=== PATIENT | male | born 1975 | race Caucasian/White ===

== ENCOUNTER 2018-07-03 07:59 | Outpatient (CLI) | payer BC, SELFPAY ==
[2018-07-03 09:25] LABS: Anion Gap 7.9 mmol/L (3-11); BUN 18 mg/dL (7-18); CO2 28.1 mmol/L (21.0-32.0); CREATININE 1.35 mg/dL (0.70-1.30); Calcium 9.3 mg/dL (8.5-10.1); Chloride 106 mmol/L (98-107); Estimated GFR 57.41 (mL/min/1.73m2); Glucose 103 mg/dL (70-100); Potassium 4.5 mmol/L (3.5-5.1); Sodium 142 mmol/L (136-145); Uric Acid 4.9 mg/dL (3.5-7.2)
== END 2018-07-03 08:19 ==
PROVIDERS: PCP Emergency Medicine; Visit Provider Emergency Medicine
DX: M10.9 Gout, unspecified (principal)
CPT/HCPCS: 36415; 80048; 84550

== ENCOUNTER 2020-03-12 11:41 | Outpatient (CLI) | payer BC, SELFPAY ==
--- NOTE | 2020-03-12 15:30 | DI.RAD_ITS ---
EXAM: XR LUMBAR SPINE COMPLETE CLINICAL HISTORY: Trauma due to fall,T14.90XA,PAIN,M25.552. TECHNIQUE: 2D digital imaging was performed. COMPARISON: CR XR SACRUM COCCYX from 03/12/2020 FINDINGS: BONES: No fracture or destructive lesion. Vertebral bodies are unremarkable. Mild hypertrophy is iden tified. DISKS: There is fuex-qx-msvonkeh narrowing of the L5-S1 disc space. The remaining disc spaces are we ll maintained. There are small endplate osteophytes at multiple levels.. ALIGNMENT: Lumbar spinal alignment is within normal limits. SOFT TISSUE: Normal. IMPRESSION: Mild degenerative changes, greatest at L5-S1.. DATA REPOSITORY: RADIATION DOSE DELIVERED:
--- NOTE | 2020-03-12 15:30 | DI.RAD_ITS ---
EXAM: XR SACRUM COCCYX CLINICAL HISTORY: Trauma due to fall,PAIN,T14.90XA. TECHNIQUE: 2D digital imaging was performed. COMPARISON: CR XR LUMBAR SPINE COMPLETE from 03/12/2020 FINDINGS: The exam is somewhat limited by overlapping soft tissue. BONES: No acute fracture is present. No bony destructive lesion is seen. JOINTS: The SI joints and visualized portions of the hip joints are unremarkable.. There is narrow ing of the L5-S1 disc space. SOFT TISSUE: Normal. IMPRESSION: No gross evidence of an acute abnormality.. DATA REPOSITORY: RADIATION DOSE DELIVERED:
== END 2020-03-12 12:01 ==
PROVIDERS: PCP Emergency Medicine; Visit Provider Emergency Medicine
DX: M53.3 Sacrococcygeal disorders, not elsewhere classified (principal); M25.552 Pain in left hip; M51.37 Other intervertebral disc degeneration, lumbosacral region; W19.XXXA Unspecified fall, initial encounter
CPT/HCPCS: 72110; 72220

== ENCOUNTER 2020-12-12 12:19 | Outpatient (REF) | payer BC, SELFPAY ==
[2020-12-12 13:23] LABS: BUN 16 mg/dL (7-18); CREATININE 1.2 mg/dL (0.70-1.30); Calcium 9.2 mg/dL (8.5-10.1); Calculated LDL 126 mg/dL (<100); Chloride 103 mmol/L (98-107); Cholesterol 204 mg/dL (<200); Glucose 94 mg/dL (74-106); HDL Cholesterol 50 mg/dL (40-60); Potassium 4.7 mmol/L (3.5-5.1); Sodium 135 mmol/L (136-145); Triglyceride 143 mg/dL (<150)
[2020-12-12 13:38] LABS: Uric Acid 4.4 mg/dL (3.5-7.2)
== END 2020-12-12 12:20 | disposition home or self-care (01) ==
LOC: LBN 12:19
PROVIDERS: PCP Emergency Medicine; Visit Provider Emergency Medicine
DX: I10 Essential (primary) hypertension (principal); E78.5 Hyperlipidemia, unspecified; M10.9 Gout, unspecified
CPT/HCPCS: 80048; 80061; 84550

== ENCOUNTER 2021-12-08 10:15 | Outpatient (CLI) | payer BC, SELFPAY ==
--- NOTE | 2021-12-08 09:30 | DI.RAD_ITS ---
Exam(s) XR KNEE LT 3V AP,LAT,DOMINIQUE EXAM: XR KNEE LT 3V AP,LAT,DOMINIQUE CLINICAL HISTORY: left knee pain TECHNIQUE: COMPARISON: No exams were available for comparison FINDINGS: Three views were obtained. The cartilaginous joint spaces appear fairly well maintained. No gross j oint effusion seen on the lateral view. No bony abnormality seen. IMPRESSION: Negative examination of the knee. RADIATION DOSE DELIVERED: Total DLP
== END 2021-12-08 10:16 | disposition home or self-care (01) ==
LOC: DIORS 10:15
PROVIDERS: PCP Nurse Practitioner Family; Referring Provider Nurse Practitioner Family; Visit Provider Student in an Organized Health Care Education/Training Program
DX: M25.562 Pain in left knee (principal)
CPT/HCPCS: 73562

== ENCOUNTER 2021-12-09 00:28 | Outpatient (CLI) | payer BC, SELFPAY ==
--- NOTE | 2021-12-09 07:15 | DI.MRI_ITS ---
Exam(s) MR LOWER JOINT LT WO EXAM: MR LOWER JOINT LT WO CLINICAL HISTORY: Acute MMT,TRAUMATIC TEAR, PAIN,S83.207A. TECHNIQUE: Multiplanar multisequence MRI was performed. COMPARISON: CR XR KNEE LT 3V AP,LAT,DOMINIQUE from 12/08/2021 FINDINGS: BONES: There is no fracture or contusion pattern. JOINTS: Articular cartilage is unremarkable. A minimal joint effusion is present. TENDONS: Extensor mechanism: Unremarkable. Medial retinaculum: Unremarkable. Lateral retinaculum: Unremarkable. Popliteus: Unremarkable. MUSCLES: Unremarkable. MENISCI: The medial meniscus shows abnormal linear horizontal signal in the posterior horn and body w ith extension to the inferior articular surface.. There is a question of an additional tiny radial t ear. The lateral meniscus is unremarkable. SOFT TISSUES: Unremarkable. LIGAMENTS: Anterior Cruciate: Mild surrounding edema. No visible tear. Posterior Cruciate: Unremarkable. Medial Collateral:Unremarkable. Lateral Collateral: Unremarkable. OTHER: IMPRESSION: Inferior surfacing tear the posterior horn and body of the medial meniscus. Question of ACL sprain. DATA REPOSITORY:
== END 2021-12-09 00:48 ==
PROVIDERS: PCP Nurse Practitioner Family; Visit Provider Student in an Organized Health Care Education/Training Program
DX: M25.562 Pain in left knee (principal); M25.462 Effusion, left knee; S83.242A Other tear of medial meniscus, current injury, left knee, initial encounter; X58.XXXA Exposure to other specified factors, initial encounter; S83.512A Sprain of anterior cruciate ligament of left knee, initial encounter
CPT/HCPCS: 73721

== ENCOUNTER 2021-12-30 02:25 | Outpatient (CLI) | payer BC, SELFPAY ==
[2021-12-30 11:35] LABS: Source Nasal/Nares
[2021-12-30 14:04] LABS: COVID-19 PCR Negative (Negative)
== END 2021-12-30 02:26 | disposition home or self-care (01) ==
PROVIDERS: PCP Nurse Practitioner Family; Visit Provider Student in an Organized Health Care Education/Training Program
DX: Z20.822 Contact with and (suspected) exposure to COVID-19 (principal)
CPT/HCPCS: 87635

== ENCOUNTER 2022-01-01 10:54 | Day surgery (SDC) | payer BC, SELFPAY ==
[2022-01-01 11:13] VITALS: BP 120/85; PULSE 68; RESP 16; TEMP 36.7; O2SAT 97
[2022-01-01] MEDS: Lactated Ringers 1,000 ML 100 ML IV (11:45)
--- NOTE | 2022-01-01 12:27 | W.ANESPRE ---
General Info Date of Service Date Performed: 01/01/22 Height: 6 ft Weight: 95.1 kg Body Mass Index (BMI): 28.4 Surgical Procedure: Operation Date: 01/01/22 12:55 Proposed Procedure Side Surgeon p Knee Arthroscopy w/any indicated meniscal, chondral and synovial surgery Left Jose Antonio Baker MD Meds Allergies and Home Medications Allergies Allergy/AdvReac Type Severity Reaction Status Date / Time No Known Allergies Allergy Verified 01/01/22 11:11 Home Medication Medication Instructions Recorded glucosamine 750 lf-bvewky-huc 1 2 tab PO DAILY 01/23/19 625 mg-D3 1,000 cwex-Z-yoa-Bosw tablet (Zfldiiragta-Thpdddspwqz-NGL with vit D) fluticasone propionate 50 2 spray VALENTINO DAILY PRN #36.4 ml 12/06/19 mcg/actuation nasal spray,suspension (Flonase Allergy Relief) allopurinol 100 mg tablet 50 mg PO DAILY tab-cap 12/23/21 Current Visit Medications: Current Medications Generic Name Dose Route Start Last Admin Trade Name Freq PRN Reason Stop Dose Admin Ringer's Solution 1,000 mls @ 100 mls/hr 01/01/22 06:00 01/01/22 11:45 IV 01/14/22 23:59 100 mls/hr INFUSION ALTAGRACIA Administration Cefazolin Sodium/Dextrose 2 gm in 50 mls @ 100 mls/hr 01/01/22 06:00 Ancef Duplex IVPB 01/01/22 23:59 PREOP ALTAGRACIA IV Miscellaneous Supplies 1 each 01/01/22 06:00 Iv Access IV 01/14/22 23:59 DIRECTED ALTAGRACIA Naproxen 250 - 500 mg 01/01/22 07:25 Naproxen 500 Mg Tab PO BID PRN PRN Oxycodone HCl 5 - 10 mg 01/01/22 07:25 Oxycodone 5 Mg Tab PO Q4H PRN PRN Sodium Chloride 0 ml 01/01/22 06:00 Normal Saline Flush 10 Ml Syr IV 01/14/22 23:59 PRN PRN Sodium Chloride 0 ml 01/01/22 06:00 Normal Saline 10 Ml Vial IJ 01/14/22 23:59 DIRECTED PRN Sterile Water 0 ml 01/01/22 06:00 Water,Injection,Sterile 10 Ml Vial IJ 01/14/22 23:59 DIRECTED PRN PFSH Active Problems Active Problems: Problem Status Onset Code Anxiety F41.9 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 Hyperlipidemia E78.5 Gout 06/17/17 M10.9 Bilateral tinnitus H93.13 Pneumonia J18.9 Status post vasectomy 03/21/15 Z98.52 Status post inguinal hernia repair 03/21/15 Z98.890, Z87.19 Primary insomnia 06/30/16 F51.01 History of shoulder surgery Z98.890 Gastroesophageal reflux disease K21.9 Depressive disorder F32.9 Bicipital tenosynovitis M75.20 Anxiety F41.9 Low back pain M54.5 Hypertrophy of inferior nasal turbinate J34.3 Deviated nasal septum J34.2 Nasal obstruction J34.89 Double vision H53.2 Right calf pain M79.661 Traumatic tear of meniscus of left knee 09/24/21 S83.207A Medical History Medical History Hyperlipidemia Impingement syndrome, shoulder Surgical History Surgical History (Updated 01/01/22 @ 11:11 by Kathy Mitchell) EGD - MAC (07/11/17) Hx of nasal septoplasty PROCEDURE l shoulder rpr rot cuff, labrum, bone spurs ([place]).HE Repair of inguinal hernia (03/21/15) LEFT Vasectomy (03/21/15) Tobacco Smoking/Tobacco Use Status: Former Tobacco Use Passive smoking exposure: Yes Alcohol Alcohol Intake: current Alcohol intake frequency: a few times a week Substance Use Substance use: Never Substance use type: does not use Vital Signs and Lab Results Vital Signs Most Recent Vital Signs in EMR: Most Recent Vital Signs Temp Pulse Resp BP Pulse Ox 36.7 C 68 16 120/85 97 01/01/22 11:13 01/01/22 11:13 01/01/22 11:13 01/01/22 11:13 01/01/22 11:13 Lab Results Blood Type / Crossmatch: No Data to Display Complete Blood Count: No Data to Display Complete Metabolic Panel: No Data to Display Liver Function Panel: No Data to Display Coagulation Panel: No Data to Display Cardiac Panel: No Data to Display Arterial Blood Gas: No Data to Display Venous Blood Gas: No Data to Display Pancreas Panel: No Data to Display Thyroid Panel: No Data to Display Infectious Disease: Coronavirus (COVID-19)(PCR) Negative (Negative) 12/30/21 08:51 12/30/21 Coronavirus 2019 Source Nasal/Nares 12/30/21 08:51 12/30/21 Blood Cultures: No Data to Display Toxicology Panel: No Data to Display Anesthesia Assessment and Plan Anesthesia History Personal History: No History of Anesthesia Complications Family History: No Family History of Anesthesia Complications Exercise Tolerance Exercise Tolerance: Metabolic Equivalents>4 Pertinent Negatives Pertinent Negatives: No Symptoms of GERD, No Major Cardiovascular Symptoms or Complaints, No Major Pulmonary Symptoms or Complaints and No History of CVA/TIA Cardiac & Pulmonary Exam Cardiac Exam: Normal S1/S2 Heart Sounds Pulmonary Exam: Clear Bilateral Breath Sounds Implantable Cardiac Device Does patient have a Pacemaker or an ICD?: No Airway Exam Known Difficult Airway: No Mallampati Class: 2 Mouth Opening: Normal (> 3cm) Thyromental Distance: Greater than 3 cm Neck Range of Motion: Full ROM Neck Circumference: Normal Teeth Condition: Normal Dentition ASA Classification ASA Score: ASA 2 Emergency Case?: No NPO Status NPO Status: NPO Clears >2 hours, Solids >8 hours Anesthesia Plan Resuscitation Status: Full Code Anesthesia Technique: Spinal Anesthesia Airway Planned: Natural Airway Monitors Used: Standard Monitors
[2022-01-01 12:28] VITALS: BMI 28.4
[2022-01-01] MEDS: ceFAZolin 2 GM/50 ML BAG IVPB (12:54)
[2022-01-01] MEDS: MORPHine 4 MG/ML SYR (13:34)
[2022-01-01] MEDS: Bupivacaine 0.25% Pres-Free 30 ML VIAL (13:34)
[2022-01-01 14:03] VITALS: BP 119/69; PULSE 74; RESP 16; TEMP 36.1; O2SAT 98
--- NOTE | 2022-01-01 14:11 | PDOC.DSDIS_ITS ---
Discharge Plan Disposition Patient Disposition: HOME Condition: Stable Discharge Details Reason For Visit: Left knee surgery Attending Provider: Jose Antonio Baker Primary Care Provider: Bobby Razo Home Meds and New Rx's Prescriptions: New naproxen 250 mg tablet 250 - 500 mg PO BID PRNQty: 30 0RF Rx Instructions: take with a meal aspirin 81 mg tablet,delayed release (DR/EC) 81 mg PO DAILY 14 Days Qty: 14 0RF oxycodone 5 mg tablet 5 - 10 mg PO Q4H MDD 30 mg PRN (Reason: moderate to severe pain) Qty: 12 0RF Continued fluticasone propionate [Flonase Allergy Relief] 50 mcg/actuation spray,suspension 2 spray VALENTINO DAILY PRN (Reason: nasal congestion) Qty: 36.4 4RF Rx Instructions: administer 2 sprays into each nostril once a day allopurinol 100 mg tablet 50 mg PO DAILY 0RF Myqrdauv-Qlpjth-CLY with vit D 750-625-1,000 mg-mg-unit tablet 2 tab PO DAILY 0RF Label Comments: 01/23/19 prn. si Discharge Instructions Additional Instructions: Surgery: Left knee arthroscopy with partial medial meniscectomy Activity: Weightbearing as tolerated. Advance range of motion as comfort allows. Restore full knee extension soon as possible. No knee brace or crutches needed as soon as comfortable. Recommend avoiding sports, pivoting, and squatting for 6-8 weeks. Physical therapy should resume in 1-2 weeks. Prescriptions: Aspirin 81 mg take 1 daily to prevent a blood clot for 14 days Naproxen 250 mg take 1-2 every 12 hours with a meal as needed for moderate pain Oxycodone 5 mg take 1-2 every 4-6 hours as needed for severe pain You may use tebl-gvn-wxptfwx Tylenol (acetaminophen) as needed for mild pain. These pain medications may be taken all at once or in different combinations as needed. Also, recommend Colace (docusate) as a stool softener as surgery and pain medicine cause constipation. Dressings: Leave dressing in place for 3 days. May then remove and leave open to air or cover incisions with Band-Aids. May shower after 5 days. Follow-up: 10-[address] Baker Let us know right away if you develop any redness, drainage, fevers, chest pain, or trouble breathing. Do not drink alcohol or drive for at least 24 hours after anesthesia. Please call the office during business hours with any questions or concerns. Referrals: Jose Antonio Baker MD [ [facility] STAFF PHYSICIAN] - Discharge Orders Discharge Orders: Discharge Order (Routine); Ordered 01/01/22 Ordered By: Jose Antonio Baker DS: Diagnosis Discharge Diagnosis (1) Traumatic tear of meniscus of left knee: Status: Acute
--- NOTE | 2022-01-01 14:18 | W.PM.OP ---
Date of service: 01/01/22 Time of Service: 14:14 Operative Note Operative Note DATE OF PROCEDURE: 01/01/22 PRE-OP DIAGNOSIS: Left knee 1. Medial meniscus tear POST-OP DIAGNOSIS: same PROCEDURE: Left knee 1. Partial medial meniscectomy, CPT #18371 SURGEON: Jose Antonio Baker AIR INTELLIGENCE SPECIALIST: None None ANESTHESIA TYPE: Local By Surgeon and Spinal Refer to Anesthesia Record PATHOLOGY: none sent TOURNIQUET TIME: 0 COMPLICATIONS: None Patient was transported to: PACU Patient's condition: stable Indications: Please see complete medical record for details. Findings: Exam under anesthesia: Full range of motion, no instability Arthroscopic findings: Small radial medial meniscus tear mostly. Localized distal lateral medial femoral condyle chondromalacia with grade 2?3 changes. Mild patellofemoral and anterior medial anterolateral synovitis. Tiny white zone lateral meniscus tear. Procedure Description: In the operating room, genral anesthesia was induced. The patient was positioned supine on the operating room table. All bony prominences were well-padded. Preoperative antibiotics were administered. The knee was prepped and draped in the usual sterile fashion. The correct patient, procedure, and side of the procedure were all verified prior to incision. Exam under anesthesia was performed. 10 cc of lidocaine & bupivacaine containing epinephrine was infiltrated about the planned anteromedial and anterolateral knee arthroscopy portals. The portals were established and a complete diagnostic arthroscopy was performed with relevant findings detailed above. Using a combination of hand instruments including meniscal biters and a power shaver and working through the anteromedial and anterolateral compartments the medial meniscus was debrided of all torn tissue to a stable margin. Care was taken to preserve as much meniscus tissue was possible. The cartilage injury site was probed and a limited chondroplasty was performed of the medial femoral condyle only removing free unstable cartilage flaps. The medial meniscal remnant was probed and found to have a stable margin, stable root, and no other tears. The mechanical shaver was also used to remove a minor amount of lateral meniscus tear fraying. The mechanical shaver was then used to remove a mild amount of inflamed synovium from the anteromedial, anterolateral, and patellofemoral compartments. Under direct arthroscopic visualization an 18-gauge needle was passed into the knee from superolateral into the suprapatellar pouch. The knee was copiously irrigated with arthroscopic fluid until there was a clear effluent before being drained of all fluid. The anteromedial and anterolateral portals were closed in 3-0 Monocryl in a buried interrupted fashion. 20 cc of lidocaine and bupivacaine with epinephrine containing 4 mg of morphine was infiltrated into the knee through the previously placed needle. Mastisol, Steri-Strips, and 4 x 4 gauze were applied over the incisions followed by sterile soft roll. The knee was then wrapped gently with an JER comressive bandage. The patient awoke from anesthesia without complication and was transferred to the recovery room in a stable condition.
--- NOTE | 2022-01-01 14:22 | W.ANESPOSTOP ---
Postoperative Evaluation Date, Time and Location Date Performed: 01/01/22 Time Performed: :22 Patient Location: Day Surgery Unit Vital Signs Most Recent Imported Vital Signs: Most Recent Vital Signs Temp Pulse Resp BP Pulse Ox 36.7 C 68 16 120/85 97 01/01/22 11:13 01/01/22 11:13 01/01/22 11:13 01/01/22 11:13 01/01/22 11:13 Pain Score Most Recent Pain Score: Most Recent Pain Score Pain Level 0 01/01/22 11:13 Assessment Mental Status: Awake (Alert & Oriented to Patient Baseline) Airway and Respiratory Function: Patent airway with normal (patient baseline) respiratory exam Cardiovascular Function: Hemodynamically Stable Hydration Status: Adequately Hydrated Nausea & Vomiting: No Nausea or Vomiting Pain: Pt. Denies Any Pain Peripheral Nerve Block: Patient did not receive a nerve block
[2022-01-01 14:36] VITALS: BP 118/77; PULSE 61; RESP 16; TEMP 36.5; O2SAT 98
== END 2022-01-01 15:35 | disposition home or self-care (01) ==
LOC: SUR 10:55
PROVIDERS: PCP Nurse Practitioner Family; Visit Provider Student in an Organized Health Care Education/Training Program
PROC: (CPT 29870; principal; 2022-01-01 12:45)
DX: M23.232 Derangement of other medial meniscus due to old tear or injury, left knee (principal); M94.262 Chondromalacia, left knee; M65.862 Other synovitis and tenosynovitis, left lower leg
CPT/HCPCS: 29881; J0690; J1885; J2270

== ENCOUNTER 2022-08-09 02:53 | Outpatient (CLI) | payer BC, SELFPAY ==
[2022-08-09 15:30] LABS: Uric Acid 6.1 mg/dL (3.5-7.2)
== END 2022-08-09 02:54 | disposition home or self-care (01) ==
LOC: LBO 02:53
PROVIDERS: PCP Nurse Practitioner Family; Visit Provider Nurse Practitioner Family
DX: M10.9 Gout, unspecified (principal)
CPT/HCPCS: 36415; 84550

== ENCOUNTER 2023-04-25 08:27 | Day surgery (SDC) | payer BC, SELFPAY ==
--- NOTE | 2023-04-24 11:05 | W.PM.DSUDISC ---
Date of service: 04/25/23 Time of Service: 10:40 Discharge Plan Disposition Patient Disposition: Home Condition: Good Discharge Details Reason For Visit: Colonoscopy Attending Provider: Main Humphrey Primary Care Provider: Bobby Razo Home Meds and New Rx's Prescriptions: Continued methylphenidate HCl 10 mg capsule, ER biphasic 30-70 10 mg PO DAILY MDD 10mg Qty: 28 0RF Discontinued bisacodyl [Dulcolax (bisacodyl)] 5 mg tablet,delayed release (DR/EC) 5 mg PO ONCE Qty: 4 0RF Rx Instructions: Take per colonoscopy instructions provided by ordering providers office polyethylene glycol 3350 17 gram/dose powder 17 g PO ONCE Qty: 238 0RF Rx Instructions: Take per colonoscopy instructions provided by ordering providers office Discharge Instructions Additional Instructions: Jose Antonio, you did great today. The quality of your prep was outstanding. We had great visualization of all parts of the large intestine. Your screening colonoscopy was totally normal. You should consider another one in 10 years to minimize the chances of dying from colon cancer over the course your lifetime. If you have any questions at all, please do not hesitate to call. All the best and see you soon. 1. If tolerated, consume a soft, low fiber diet for 1-2 days. 2[address] Do not drive, drink alcohol, operate machinery, make critical decisions, or do activities that require coordination or balance for 24 hours. 3. Because air was put into your colon during the procedure, expelling air from your rectum (passing gas or farting) is normal. 4. You may not have a bowel movement for 1-3 days because of the colonoscopy prep. This is normal. 5. Go directly to the emergency room if you notice any of the following: Develop chills (warm to touch), or if you have a thermometer and your temperature is above 101 Difficulty breathing or difficultly swallowing Persistent vomiting Severe abdominal pain, other than gas cramps Severe chest pain Black, tarry stools Any bleeding ? exceeding one tablespoon 6. Call your physician if the site where your intravenous was started becomes red, swollen, painful, and warm to touch. 7. Your physician has reviewed your pre-procedure medications. Please continue to take those medications as previously ordered. You will be given specific information/education regarding any changes to your medications before leaving. Activity:: Activity as Tolerated Diet:: As Tolerated Discharge Orders Discharge Orders: Discharge Order (Routine); Ordered 04/24/23 Ordered By: Main Humphrey DS: Diagnosis Discharge Diagnosis (1) Screen for colon cancer: Status: Acute Asessment and Plan: Negative screening colonoscopy
--- NOTE | 2023-04-24 11:06 | W.COLOREPORT ---
Date of service: 04/25/23 Time of Service: 10:41 Colonoscopy Report Date of procedure: 04/25/23 Pre-op diagnosis general: Screening colonoscopy Post-op diagnosis procedure note: other (Negative screening colonoscopy) Procedure: Colonoscopy Surgeon: Main Humphrey Anesthesia Type: General:No Airway Estimated blood loss (mL): 0 Pathology: none sent Complications: None Disposition: same day Indications: Jose Antonio is 47 years old, and is here for screening colonoscopy Prep: Miralax/Dulcolax Procedure Start Time: 10:16 Procedure End Time: 10:24 Retraction Time: 5 Findings: Normal screening colonoscopy Procedure Description: After the induction of monitored anesthetic care, and with the patient in left lateral decubitus position, I began by performing an external anorectal exam.? Perineum and skin were normal, as was the anal verge.? There was no evidence of external hemorrhoids.? Next, I performed a digital rectal exam.? I did not appreciate any abnormal findings.? Next, I advanced a colonoscope into the rectal vault.? I performed retroflexion.? This was normal.? Using insufflation, I then advanced the colonoscope beyond the rectal folds and into the sigmoid colon before advancing towards the cecum.? The quality of the prep was outstanding.? The scope was noted to be in the cecum by identification of the ileocecal valve and appendiceal orifice.? I then began withdrawing the colonoscope using repeated irrigation as necessary for full evaluation of the colonic mucosa. ?Once the scope was withdrawn to the level of the rectum, great care was taken to examine portions of the rectal folds.? I did not see any signs of tumors or polyps anywhere along the length of the colon. Finally, the scope was withdrawn and the patient was brought to the same-day surgery recovery unit as the anesthetic wore off. ?The findings and instructions were shared with the patient prior to discharge.
[2023-04-25 08:35] VITALS: BP 121/91; PULSE 68; RESP 16; TEMP 36.5; O2SAT 97
--- NOTE | 2023-04-25 09:01 | W.ANESPRE ---
General Info Date of Service Date Performed: 04/25/23 Height: 6 ft 0.5 in Weight: 95.2 kg Body Mass Index (BMI): 28.0 Surgical Procedure: Operation Date: 04/25/23 09:50 Proposed Procedure Side Surgeon ritu Humphrey MD Meds Allergies and Home Medications Allergies Allergy/AdvReac Type Severity Reaction Status Date / Time No Known Allergies Allergy Verified 04/25/23 08:43 Home Medication Medication Instructions Recorded methylphenidate HCl 10 mg biphasic 10 mg PO DAILY #28 caps 03/21/23 30-70 capsule,extended release Current Visit Medications: Current Medications Generic Name Dose Route Start Last Admin Trade Name Freq PRN Reason Stop Dose Admin Hyoscyamine Sulfate 0.125 mg 04/24/23 11:07 Hyoscyamine 0.125 Mg Sl/Oral/Chew SL 05/24/23 11:06 DIRECTED PRN Ringer's Solution 1,000 mls @ 80 mls/hr 04/25/23 06:00 IV 05/22/23 23:59 INFUSION [facility] IV Miscellaneous Supplies 1 each 04/25/23 06:00 Iv Access IV 05/22/23 23:59 DIRECTED ALTAGRACIA Ondansetron HCl 4 mg 04/24/23 11:07 Ondansetron 4 Mg/2 Ml Vial IVP 05/24/23 11:06 Q4H PRN PRN Nausea / Vomiting Sodium Chloride 0 ml 04/25/23 06:00 Normal Saline Flush 10 Ml Syr IV 05/22/23 23:59 PRN PRN Sodium Chloride 0 ml 04/25/23 06:00 Normal Saline 10 Ml Vial IJ 05/22/23 23:59 DIRECTED PRN Sterile Water 0 ml 04/25/23 06:00 Water,Injection,Sterile 10 Ml Vial IJ 05/22/23 23:59 DIRECTED PRN PFSH Active Problems Active Problems: Problem Status Onset Code Hyperlipidemia E78.5 Gout 06/17/17 M10.9 Bilateral tinnitus H93.13 Primary insomnia 06/30/16 F51.01 Double vision H53.2 ADD (attention deficit disorder) F98.8 Screen for colon cancer Z12.11 Medical History Medical History Deviated nasal septum ENT surgically repaired Impingement syndrome, shoulder Traumatic tear of meniscus of left knee (09/24/21) Surgically repaired Surgical History Surgical History (Updated 04/25/23 @ 08:46 by Fallon Mac RN) EGD - MAC (07/11/17) H/O medial meniscus repair of left knee H/O shoulder surgery Right, Dr. Scott Hx of nasal septoplasty PROCEDURE l shoulder rpr rot cuff, labrum, bone spurs ([facility]).HE Repair of inguinal hernia (03/21/15) LEFT Status post inguinal hernia repair (03/21/15) Status post vasectomy (03/21/15) Vasectomy (03/21/15) Tobacco Smoking/Tobacco Use Status: Former Tobacco Use Passive smoking exposure: Yes Alcohol Alcohol Intake: current Alcohol intake frequency: a few times a week Substance Use Substance use: Never Substance use type: does not use Vital Signs and Lab Results Vital Signs Most Recent Vital Signs in EMR: Most Recent Vital Signs Temp Pulse Resp BP Pulse Ox 36.5 C 68 16 121/91 H 97 04/25/23 08:35 04/25/23 08:35 04/25/23 08:35 04/25/23 08:35 04/25/23 08:35 Lab Results Blood Type / Crossmatch: No Data to Display Complete Blood Count: No Data to Display Complete Metabolic Panel: No Data to Display Liver Function Panel: No Data to Display Coagulation Panel: No Data to Display Cardiac Panel: No Data to Display Arterial Blood Gas: No Data to Display Venous Blood Gas: No Data to Display Pancreas Panel: No Data to Display Thyroid Panel: No Data to Display Infectious Disease: No Data to Display Blood Cultures: No Data to Display Toxicology Panel: No Data to Display Imaging and Studies Imaging and Studies Study information below may be from another EMR and interpreted by another provider. Please see original notes in EMR for more complete details. Stress Test Summary: Stress Test Jose Antonio Fischer 47 M 1975 Allergy/Adv: No Known Allergies Patient Name: JOSE ANTONIO FISCHER #: [id number]: DI Ordering Provider: Neyda Vernon NPAccount #: [id number]: REG CLI Primary Care Provider: KENYON TSAIate of Exam: 06/22/16ex: M : 1975Age: 40 Exam(s) [id number] NM:MPI Resting & Stress GRP *[facility]* *[facility]* [address] [place] [address] Myocardial Perfusion Imaging - SPECT Marcos protocol Date of study: 06/22/2016 *PATIENT PRESENTATION* Height: 182.9cm ((72in) ) Blood Pressure: Weight: 88.6kg ((195lb) ) BSA: 2.13m^2 Ordering physician: Randolph Dixon MD Impressions: Normal perfusion by Tc99m Sestamibi Imaging. Summary: 1. Myocardial perfusion imaging: No myocardial perfusion defects noted. 2. The calculated left ventricular ejection fraction after stress: 61%. Indication: R07.9. History: REASON FOR TEST: PATIENT REPORTS THAT A MONTH AGO HE AWOKE FROM SLEEP WITH CHEST TIGHTNESS AND BILATERAL ARM NUMBNESS. SINCE THAT EVENT PT REPORTS INTERMINTENT PINCH RATED 3/10 LEFT STERNAL BOARDER. PAST MEDICAL HX: HYPERLIPIDEMIA, GERD, ANIEXTY. FAMILY HX: FATHER- HYPERTENSION & HYPERLIPIDEMIA. MOTHER- HYPERLIPIDEMIA. SMOKING STATUS: FORMER SMOKER EXERCISE ROUTINE: 3-5 DAYS/ WEEK RUN 30 MINUTES OR MORE. Risk factors: Family history of coronary artery disease. Dyslipidemia. Cholesterol: 195mg/dl. HDL: 53mg/dl. LDL: 128mg/dl. Triglycerides: 128mg/dl. ALLERGIES: SHRIMP MEDICATIONS: IBUPROFEN 800MG PRN, GLUCOSAMINE 1 TAB DAILY. Imaging Technique: Protocol: Marcos protocol. Acquisition: Gated SPECT; 1 day - rest/stress. The patient was imaged in the supine position. Attenuation correction used. Isotope administration: - Rest. Tc[99m]-sestamibi. Dose: 10.1mCi. Injection time: 08:30 AM. Injection to stress time: 00:45. - Stress. Tc[99m]-sestamibi. Dose: 30mCi. Injection time: 10:05 AM. 1-2 min before end of exercise Baseline ECG: SINUS RHYTHM. HR 60 BPM. NO ECTOPY. EKG FROM 05/21/16 SHOWS SINUS RHYTHM WITH LOW VOLTAGE AT 73 BPM. Stress protocol: + +---+ + !Stage !HR !BP (mmHg) ! + +---+ + !Baseline supine !60 !120/70 (87) ! + +---+ + !Baseline standing !63 !120/80 (93) ! + +---+ + !Stage I; 1.7mph, 10degrees; 3 min !96 !130/70 (90) ! + +---+ + !Stage II; 2.5mph, 12degrees; 3 min !115!160/80 (107)! + +---+ + !Stage III; 3.4mph, 14degrees; 3 min!152!180/80 (113)! + +---+ + !Stage IV; 4.2mph, 16degrees; 3 min !174! ! + +---+ + !Peak stress !185! ! + +---+ + !Immediate post stress !182! ! + +---+ + !Recovery; 1 min !148!100/62 (75) ! + +---+ + !Recovery; 3 min !121!150/80 (103)! + +---+ + !Recovery; 6 min !112!120/60 (80) ! + +---+ + !Recovery; 9 min !106! ! + +---+ + * Stress results: The rate-pressure product for the peak heart rate and blood pressure was 83348ri Hg/min. Stress ECG: TREADMILL PORTION OF STRESS TEST ENDED IN 15 MINUTES AND 3 SECONDS DUE TO PATIENT FATIGUE. MAX HEART RATE: 185 PERCENT OF TARGET: 103% SUDDEN DECREASE IN BLOOD PRESSURE 100/62 IN IMMEDIATE RECOVERY WITH C/O DIZZINESS. NO ECTOPY NOTED. PT REPORTED DURING IMMEDIATE RECOVERY A CHEST POKE LEFT STERNAL BOARDER. THIS RESOLVED IN 12 MINUTES OF RECOVERY. UPWARD SLOPING ST DEPRESSIONS NOTED AT IMMEDIATE RECOVERY IN LEADS V4,V5, AND V6. THESE RESOLVED IN 2 MINUTES OF RECOVERY. FUNCTIONAL CAPACITY: ABOVE AVERAGE. Myocardial perfusion: Imaging information: gated. No myocardial perfusion defects noted. Ventricular Function (Wall Motion): The calculated left ventricular ejection fraction after stress: 61%. 06/22/16 Echocardiogram Summary: Summary: 1. Left ventricle: The cavity size was normal. Wall thickness was normal. Systolic function was normal. The estimated ejection fraction was 55-60%. Wall motion was normal; there were no regional wall motion abnormalities. 2. Aortic root: The aortic root was at upper normal limits. 3. Right ventricle: The cavity size was at the upper limits of normal. Wall thickness was normal. Systolic function was normal. 05/28/16 Anesthesia Assessment and Plan Anesthesia History Personal History: No History of Anesthesia Complications Family History: No Family History of Anesthesia Complications Exercise Tolerance Exercise Tolerance: Metabolic Equivalents>4 Pertinent Negatives Pertinent Negatives: No Symptoms of GERD, No Major Cardiovascular Symptoms or Complaints, No Major Pulmonary Symptoms or Complaints and No History of CVA/TIA Cardiac & Pulmonary Exam Cardiac Exam: Normal S1/S2 Heart Sounds Pulmonary Exam: Clear Bilateral Breath Sounds Implantable Cardiac Device Does patient have a Pacemaker or an ICD?: No Airway Exam Known Difficult Airway: No Mallampati Class: 2 Mouth Opening: Normal (> 3cm) Thyromental Distance: Greater than 3 cm Neck Range of Motion: Full ROM Neck Circumference: Normal Teeth Condition: Normal Dentition ASA Classification ASA Score: ASA 2 Emergency Case?: No NPO Status NPO Status: NPO Clears >2 hours, Solids >8 hours Anesthesia Plan Resuscitation Status: Full Code Anesthesia Technique: General Anesthesia Airway Planned: Natural Airway Monitors Used: Standard Monitors
[2023-04-25] MEDS: Lactated Ringers 1,000 ML 80 ML IV (09:05)
[2023-04-25 10:01] VITALS: BMI 28.0
[2023-04-25 10:30] VITALS: BP 114/94; PULSE 68; RESP 17; TEMP 36.5; O2SAT 97
[2023-04-25 11:00] VITALS: BP 124/88; PULSE 59; RESP 17; TEMP 36.6; O2SAT 98
--- NOTE | 2023-04-25 11:01 | W.ANESPOSTOP ---
Postoperative Evaluation Date, Time and Location Date Performed: 04/25/23 Time Performed: 10:35 Patient Location: Day Surgery Unit Vital Signs Most Recent Imported Vital Signs: Most Recent Vital Signs Temp Pulse Resp BP Pulse Ox 36.5 C 68 17 114/94 H 97 04/25/23 10:30 04/25/23 10:30 04/25/23 10:30 04/25/23 10:30 04/25/23 10:30 Pain Score Most Recent Pain Score: Most Recent Pain Score Pain Level 0 04/25/23 10:30 Assessment Mental Status: Awake (Alert & Oriented to Patient Baseline) Airway and Respiratory Function: Patent airway with normal (patient baseline) respiratory exam Cardiovascular Function: Hemodynamically Stable Hydration Status: Adequately Hydrated Nausea & Vomiting: No Nausea or Vomiting Pain: Pt. Denies Any Pain Peripheral Nerve Block: Patient did not receive a nerve block
== END 2023-04-25 11:16 | disposition home or self-care (01) ==
PROVIDERS: PCP Nurse Practitioner Family; Visit Provider Surgery
PROC: 0DJD8ZZ Inspection of Lower Intestinal Tract, Via Natural or Artificial Opening Endoscopic (ICD-10-PCS; CPT 45378; principal; 2023-04-25 09:45)
DX: Z12.11 Encounter for screening for malignant neoplasm of colon (principal)
CPT/HCPCS: 45378; J2001

== ENCOUNTER 2025-04-12 09:52 | Outpatient (CLI) | payer BC, SELFPAY ==
[2025-04-12 09:35] LABS: Hemoglobin A1C 5.5 % (<5.7)
[2025-04-12 10:07] LABS: Calculated LDL 135 mg/dL (<100); Cholesterol 219 mg/dL (<200); HDL Cholesterol 57 mg/dL (>or=40); Triglyceride 136 mg/dL (<150)
== END 2025-04-12 09:53 | disposition home or self-care (01) ==
LOC: LBO 09:52
PROVIDERS: PCP Nurse Practitioner Family; Visit Provider Nurse Practitioner Family
DX: E78.5 Hyperlipidemia, unspecified (principal); Z13.1 Encounter for screening for diabetes mellitus
CPT/HCPCS: 36415; 80061; 83036